=== PATIENT | male | born 1985 | race Caucasian/White ===

== ENCOUNTER 2018-04-05 16:32 | Emergency (ER) | payer BC ==
[2018-04-05 17:01] VITALS: BP 165/92
--- NOTE | 2018-04-05 17:04 | UC ---
Back Pain HPI - HPI Summary HPI Summary: 33-year-old male presents with acute back pain. States on 04/02/2018 he was climbing onto the front bumper of his truck to work on the motor when he slipped and fell backwards striking his lower back on a snowplow mount. Complains of bilateral lumbar back pain with the right side being slightly worse than the left. Describes as a constant aching that worsens with twisting. He has been taking Tylenol and naproxen with some relief in the pain. Denies dysuria, frequency, urgency, hematuria, numbness, tingling, or weakness of the lower extremities, or loss of bowel or bladder control. - History of Current Complaint Chief Complaint: UCBackPain Stated Complaint: BACK PAIN Time Seen by Provider: 04/05/18 17:02 Hx Obtained From: Patient Pain Intensity: 4 - Allergies/Home Medications Allergies/Adverse Reactions: Allergies Allergy/AdvReac Type Severity Reaction Status Date / Time No Known Allergies Allergy Verified 04/05/18 16:55 PMH/Surg Hx/FS Hx/Imm Hx Previously Healthy: Yes - Denies significant PMH - Surgical History Surgical History: Yes Surgery Procedure, Year, and Place: appy - Family History Known Family History: Positive: Hypertension - Social History Occupation: Employed Full-time Lives: With Family Alcohol Use: None Substance Use Type: None Smoking Status (MU): Never Smoked Tobacco Review of Systems All Other Systems Reviewed And Are Negative: Yes Constitutional: Negative: Fever, Chills Skin: Negative: Bruising Respiratory: Positive: Negative Cardiovascular: Positive: Negative Gastrointestinal: Positive: Negative Genitourinary: Negative: Dysuria, Hematuria, Frequency, Urgency Motor: Negative: Weakness Neurovascular: Negative: Decreased Sensation Musculoskeletal: Positive: Other: - See HPI Neurological: Negative: Weakness, Paresthesia, Numbness Is Patient Immunocompromised?: No Physical Exam - Summary Physical Exam Summary: GENERAL APPEARANCE: Well developed, well nourished, alert and cooperative, and appears to be in no acute distress. NECK: Neck supple, non-tender. CARDIAC: Normal S1 and S2. No S3, S4 or murmurs. Rhythm is regular. There is no peripheral edema, cyanosis or pallor. Extremities are warm and well perfused. Capillary refill is less than 2 seconds. Peripheral pulses intact. LUNGS: Clear to auscultation without rales, rhonchi, wheezing or diminished breath sounds. ABDOMEN: Positive bowel sounds. Soft, nondistended, nontender. No guarding or rebound. No masses or hepatosplenomegally. MUSKULOSKELETAL: ROM intact to all extremities. No joint erythema or tenderness. Normal muscular development. Normal gait. BACK: Examination of the spine reveals normal posture. Mild soft tissue of the tenderness with palpation over bilateral lumbar spine with right side slightly worse than left. No spinal deformity, step off, or point tenderness over the spinous processes, decreased range of motion or muscular spasm. NEUROLOGICAL: Strength and sensation symmetric and intact to lower extremities. SKIN: Skin normal color, texture and turgor with no lesions or eruptions. Triage Information Reviewed: Yes Vital Signs: Initial Vital Signs Temp 98.2 F 04/05/18 16:56 Pulse 86 04/05/18 16:56 Resp 15 04/05/18 16:56 BP 165/92 04/05/18 16:56 Pulse Ox 100 04/05/18 16:56 Vital Signs Reviewed: Yes Back Pain Course/Dx - Course Course Of Treatment: 33-year-old male presents with acute back pain. States on 04/02/2018 he was climbing onto the front bumper of his truck to work on the motor when he slipped and fell backwards striking his lower back on a snowplow mount. Complains of bilateral lumbar back pain with the right side being slightly worse than the left. Describes as a constant aching that worsens with twisting. He has been taking Tylenol and naproxen with some relief in the pain. Denies dysuria, frequency, urgency, hematuria, numbness, tingling, or weakness of the lower extremities, or loss of bowel or bladder control. Afebrile. Patient was noted to be hypertensive otherwise vital signs were within normal limits. Exam revealed an adult female in no acute distress with mild soft tissue tenderness of the lumbar spine with the right side being slightly worse than the left. No erythema, ecchymosis, or lesions noted. No point tenderness over the spinous processes. No deformity or step-offs noted. Strength and sensation intact in bilateral lower extremities. Suspect symptoms are from a lumbar strain versus contusion. Recommend conservative treatment for low back pain including NSAIDs and cold or heat therapy. I also provided him with a prescription for physical therapy for evaluation and treatment. He is to return here or follow up with primary care in 7 days if symptoms do not improve. Anticipatory guidance and warning symptoms were reviewed with the patient. Verbalizes understanding and agrees with plan of care. - Differential Dx/Diagnosis Differential Diagnosis/HQI/PQRI: Fracture, Herniated Disc, Renal Colic, Strain Provider Diagnosis: Acute low back pain, Elevated blood pressure reading Discharge - Sign-Out/Discharge Documenting (check all that apply): Patient Departure All imaging exams completed and their final reports reviewed: No Studies - Discharge Plan Condition: Stable Disposition: HOME Prescriptions: Naproxen [Naproxen 500 mg tab] 500 mg PO Q12HR #30 tablet Patient Education Materials: Acute Low Back Pain (ED) Referrals: No Primary Care Phys,[facility]OPCP [Primary Care Provider] - [facility] – [place] [facility] [Outside] Additional Instructions: Take naproxen 500 mg 1 tab every 12 hours with food for next 5-7 days then take every 12 hours as needed for pain. Try using heat, ice, or alternating ice then heat to the affected area for 15- 20 minutes at a time at least 4 times a day to relax the muscles and help with pain. I have given you an order for physical therapy. Take this to your physical therapist of choice for evaluation and treatment. Your blood pressure was elevated in the clinic today. It is recommended that you have this rechecked by a primary care provider within 4 weeks. I have given you the contact information for the [facility] physician referral service if you need assistance with establishing with a provider. Return here or with primary care in 1 week if no improvement in symptoms. Seek immediate medical attention in the emergency room if you have severe pain that is not managed with pain medication, you develop numbness, tingling, or weakness in your legs, you lose control of your bowel or bladder, or have any worsening of symptoms. - Billing Disposition and Condition Condition: STABLE Disposition: Home
== END 2018-04-05 17:39 | disposition home or self-care (01) ==
LOC: UCCORT 16:32
DX: M54.5 Low back pain (principal); R03.0 Elevated blood-pressure reading, without diagnosis of hypertension
CPT/HCPCS: 99212; G0463